=== PATIENT | male | born 1935 | race Hispanic/Latino ===

== ENCOUNTER 2017-09-17 12:10 | Inpatient (IN) | payer MEDICARE, OTHER ==
[2017-09-17 12:43] LABS: Hemoglobin 13.8 gm/dl (11.8-15.2); Mean Corpuscular HGB Conc 35 % (32-34); Mean Corpuscular Hemoglobin 31 pg (28-32); Mean Corpuscular Volume 86 fl (84-94); Platelet Count 158 K/mm3 (140-440); Red Blood Count 4.51 M/mm3 (3.65-5.03); Red Cell Distribution Width 14.3 % (13.2-15.2)
[2017-09-17 12:55] LABS: INR 2.13 (0.87-1.13); Partial Thromboplastin Time 34.1 Sec. (24.2-36.6)
[2017-09-17 12:58] LABS: BUN/Creatinine Ratio 18; Blood Urea Nitrogen 20 mg/dL (9-20); Calcium 10.1 mg/dL (8.4-10.2); Hemolysis Index 6
--- NOTE | 2017-09-17 18:47 | Emergency Department Report ---
ED GI Bleed HPI - General Chief complaint: GI Bleed Stated complaint: GI TROUBLE Time Seen by Provider: 09/17/17 13:09 Source: patient Mode of arrival: Ambulatory Limitations: No Limitations - History of Present Illness Initial comments: 81yo male with PMHx of Atrial fibrillation on coumadin came in with complaint of having black stools and had spitting up blood. Pt is under no acute distress , + eating, drinking, no change in behavior, relaxing on bed, GUIAC: NEGATIVE MD complaint: blood on toilet paper -: Gradual Radiation: none Severity scale (0 -10): 0 Quality: painless Consistency: intermittent Improves with: none Worsens with: none Associated Symptoms: denies other symptoms - Related Data Allergies Allergy/AdvReac Type Severity Reaction Status Date / Time No Known Allergies Allergy Unverified 09/17/17 12:20 ED Review of Systems ROS: Stated complaint: GI TROUBLE Other details as noted in HPI Constitutional: denies: chills, fever Eyes: denies: eye pain, eye discharge, vision change ENT: denies: ear pain, throat pain Respiratory: denies: cough, shortness of breath, wheezing Cardiovascular: denies: chest pain, palpitations Endocrine: no symptoms reported Gastrointestinal: denies: abdominal pain, nausea, diarrhea Genitourinary: denies: urgency, dysuria Musculoskeletal: denies: back pain, joint swelling, arthralgia Skin: denies: rash, lesions Neurological: denies: headache, weakness, paresthesias Psychiatric: denies: anxiety, depression Hematological/Lymphatic: denies: easy bleeding, easy bruising ED Past Medical Hx - Past Medical History Hx Hypertension: Yes Hx Diabetes: Yes Hx Arthritis: Yes Additional medical history: AFIB.CAD,hyperlipidemia,PVD,prostate ca 2001, hypotyroidism,hearing impaired,neuropathy - Surgical History Additional Surgical History: brain tumor 1981,prostate,cabbage 6 - Social History Smoking Status: Unknown if ever smoked Substance Use Type: None ED Physical Exam - General Limitations: No Limitations General appearance: alert, in no apparent distress - Head Head exam: Present: atraumatic, normocephalic - Eye Eye exam: Present: normal appearance - ENT ENT exam: Present: mucous membranes moist - Neck Neck exam: Present: normal inspection - Respiratory Respiratory exam: Present: normal lung sounds bilaterally. Absent: respiratory distress - Cardiovascular Cardiovascular Exam: Present: regular rate, normal rhythm. Absent: systolic murmur, diastolic murmur, rubs, gallop - GI/Abdominal GI/Abdominal exam: Present: soft, normal bowel sounds - Rectal Rectal exam: Present: deferred, normal inspection, normal rectal tone, heme (-) stool - Extremities Exam Extremities exam: Present: normal inspection - Back Exam Back exam: Present: normal inspection - Neurological Exam Neurological exam: Present: alert, oriented X3 - Psychiatric Psychiatric exam: Present: normal affect, normal mood - Skin Skin exam: Present: warm, dry, intact, normal color. Absent: rash ED Course Vital Signs 09/17/17 09/17/17 09/17/17 12:14 13:22 18:50 Temperature 98.6 F 98 F Pulse Rate 74 72 Respiratory 18 18 18 Rate Blood Pressure 135/58 Blood Pressure 131/69 [Left] O2 Sat by Pulse 98 98 98 Oximetry ED Medical Decision Making - Lab Data Result diagrams: 09/17/17 12:28 09/17/17 12:28 - Medical Decision Making 81yo male with pmh of A-fib on coumadin was sent by for GI bleed and to get a scope done. i called and per him to admit pt and get a scope done. i also discussed with (GI physician alterations supervisor) and per him ok to admit and he will see the pt as consult Critical care attestation.: If time is entered above; I have spent that time in minutes in the direct care of this critically ill patient, excluding procedure time. ED Disposition Clinical Impression: GI bleed Disposition: DC-09 OP ADMIT IP TO THIS HOSP Is pt being admited?: Yes Does the pt Need Aspirin: No Condition: Stable
--- NOTE | 2017-09-17 20:40 | History and Physical Report ---
History of Present Illness Date of examination: 09/17/17 Date of admission: 09/17/17 15:42 Chief complaint: See dictated H/p in reports History of present illness: See H/p in reports Medications and Allergies Allergies Allergy/AdvReac Type Severity Reaction Status Date / Time No Known Allergies Allergy Unverified 09/17/17 12:20 Home Medications Medication Instructions Recorded Confirmed Last Taken Type Gabapentin [Neurontin] 300 mg PO DAILY 09/18/17 09/18/17 Unknown History NIFEdipine [Nifedipine ER] 15 mg PO QDAY 09/18/17 09/18/17 Unknown History Nebivolol HCl [Bystolic] 5 mg PO DAILY 09/18/17 09/18/17 Unknown History Pravastatin Sodium [Pravachol] 40 mg PO QDAY 09/18/17 09/18/17 Unknown History Warfarin Sodium [Jantoven] 5 mg PO QDAY 09/18/17 09/18/17 Unknown History Exam - Constitutional Vitals: Temp Pulse Resp BP Pulse Ox 98 F 72 18 131/69 98 09/17/17 18:50 09/17/17 18:50 09/17/17 18:50 09/17/17 18:50 09/17/17 18:50 Results - Labs CBC & Chem 7: 09/17/17 12:28 09/17/17 12:28 Labs: Laboratory Last Values WBC 10.1 K/mm3 (4.5-11.0) 09/17/17 12:28 RBC 4.51 M/mm3 (3.65-5.03) 09/17/17 12:28 Hgb 13.8 gm/dl (11.8-15.2) 09/17/17 12:28 Hct 39.0 % (35.5-45.6) 09/17/17 12:28 MCV 86 fl (84-94) 09/17/17 12:28 MCH 31 pg (28-32) 09/17/17 12:28 MCHC 35 % (32-34) H 09/17/17 12:28 RDW 14.3 % (13.2-15.2) 09/17/17 12:28 Plt Count 158 K/mm3 (140-440) 09/17/17 12:28 PT 25.2 Sec. (12.2-14.9) H 09/17/17 12:28 INR 2.13 (0.87-1.13) H 09/17/17 12:28 APTT 34.1 Sec. (24.2-36.6) 09/17/17 12:28 Sodium 138 mmol/L (137-145) 09/17/17 12:28 Potassium 4.4 mmol/L (3.6-5.0) 09/17/17 12:28 Chloride 98.2 mmol/L (98-107) 09/17/17 12:28 Carbon Dioxide 27 mmol/L (22-30) 09/17/17 12:28 Anion Gap 17 mmol/L 09/17/17 12:28 BUN 20 mg/dL (9-20) 09/17/17 12:28 Creatinine 1.1 mg/dL (0.8-1.5) 09/17/17 12:28 Estimated GFR > 60 ml/min 09/17/17 12:28 BUN/Creatinine Ratio 18 % 09/17/17 12:28 Glucose 103 mg/dL (75-100) H 09/17/17 12:28 Calcium 10.1 mg/dL (8.4-10.2) 09/17/17 12:28
[2017-09-17] MEDS ORDERED: ZOFRAN IV PRN (20:41)
[2017-09-17] MEDS ORDERED: TYLENOL PO PRN (20:41)
[2017-09-17] MEDS ORDERED: SODIUM CHLORIDE FLUSH SYRINGE 10 ML IV PRN (20:41)
[2017-09-17] MEDS ORDERED: PERCOCET 5/325 PO PRN (20:41)
[2017-09-17] MEDS ORDERED: MORPHINE IV PRN (20:41)
[2017-09-17] MEDS ORDERED: NACL 0.9% 1000 ML 1,000 ML IV SCH (21:00)
[2017-09-18] MEDS: SODIUM CHLORIDE FLUSH SYRINGE 10 ML IV SCH ×3 (07:44→21:54)
--- NOTE | 2017-09-18 07:54 | History and Physical Report ---
CHIEF COMPLAINT: Black tarry stools for 1 day. HISTORY OF PRESENT ILLNESS: An 81-year-old male with history of atrial fibrillation on Coumadin, comes in for black stools and spitting blood. No acute distress. No lightheadedness. No shortness of breath. No chest pain. No exacerbating or relieving factors. PAST MEDICAL HISTORY: Significant for hypertension, diabetes, arthritis, atrial fibrillation, coronary artery disease, hyperlipidemia, prostate cancer in 2001, hypothyroidism, neuropathy. PAST SURGICAL HISTORY: Brain tumor, benign, removed in 1981, plastic surgery, CABG x 4. SOCIAL HISTORY: Smoker in the past. FAMILY HISTORY: Hypertension. REVIEW OF SYSTEMS: Significant for black stools. Otherwise, review of systems is essentially negative. No chest pain, no lightheadedness. A 14-point review of systems done. PHYSICAL EXAMINATION: GENERAL: Elderly male, cooperative during examination. VITAL SIGNS: Blood pressure is 138/62, temperature is 97.9, pulse is ____, respirations are 20, sats are 94%. HEENT: Unremarkable. NECK: Supple, no lymphadenopathy, no thyromegaly. LUNGS: Clear to auscultation and percussion. Good air entry. CARDIOVASCULAR: S1, S2 heard. No gallop, no murmur, no rub. Apical impulse in left fifth intercostal space and midclavicular line. ABDOMEN: Soft and benign. No hepatosplenomegaly. No guarding, no rigidity. RECTAL: Occult blood negative. CENTRAL NERVOUS SYSTEM: Alert and oriented x 4, nonfocal exam. EXTREMITIES: Good pedal pulses. No pedal edema. EKG: Atrial fibrillation. LABORATORY DATA: Significant for white count of 10,100, hemoglobin of 13.8 and hematocrit of 39.0, electrolytes are normal. ASSESSMENT AND PLAN: 1. Gastrointestinal bleed. The patient started on IV Protonix and GI consult requested for possible upper and lower endoscopy. Occult blood was negative. Also serial hemoglobin and hematocrit. 2. Hypertension. Catapres patch for the time being, resume nifedipine once the patient is started on oral liquids and diet. 3. Hyperlipidemia. We will hold statins. 4. Atrial fibrillation. We will hold the Coumadin. 5. Peripheral neuropathy. We will hold the gabapentin. 6. Deep venous thrombosis prophylaxis, only SCDs. In summary gastrointestinal bleed, endoscopy as necessary. IV Protonix. Hold the blood pressure medications and hyperlipidemia medications and also hold Coumadin until the patient is on resumed diet. JOB# [id number] AL/RYLAN
[2017-09-18 08:03] LABS: Basophils % (Auto) 0.2 % (0.0-1.8); Eosinophils # (Auto) 0.1 K/mm3 (0.0-0.4); Eosinophils % (Auto) 1.3 % (0.0-4.3); Hematocrit 37.4 % (35.5-45.6); Hemoglobin 12.7 gm/dl (11.8-15.2); Lymphocytes # (Auto) 1.2 K/mm3 (1.2-5.4); Lymphocytes % (Auto) 16.4 % (13.4-35.0); Mean Corpuscular HGB Conc 34 % (32-34); Mean Corpuscular Hemoglobin 30 pg (28-32); Mean Corpuscular Volume 88 fl (84-94); Monocytes # (Auto) 0.7 K/mm3 (0.0-0.8); Monocytes % (Auto) 9.4 % (0.0-7.3); Platelet Count 129 K/mm3 (140-440); Red Blood Count 4.24 M/mm3 (3.65-5.03); Red Cell Distribution Width 14.5 % (13.2-15.2)
--- NOTE | 2017-09-18 09:13 | Gastroenterology Consultation ---
History of Present Illness - Reason for Consult Consult date: 09/18/17 GI bleeding Requesting physician: JEANNIE JOHNSON - History of Present Illness Mr Gee is an 81 y/o male admitted with reports of waking up 24 hours ago and finding blood in his mouth. He also noted later that day that that his BM was dark. No prior episodes. He denies pain. No weight loss or reflux symptoms. Last colonoscopy 10+ years ago. No prior EGD. He is typically seen by Dr. Aj on an outpatient basis. Mr Gee is on daily coumadin and asa ( hx of CABG and A fib). PMH significant for CAD, CABG, HTN, A fib, prostate CA 2001, benign brain tumor 1981, neuropathy. Past History Past Medical History: arthritis, CAD, cancer, hypertension, hyperlipidemia, hypothyroidism Past Surgical History: CABG, Other (brain tumor removal- benign 1981) Social history: , lives with family Family history: no significant family history Medications and Allergies Allergies Allergy/AdvReac Type Severity Reaction Status Date / Time No Known Allergies Allergy Unverified 09/17/17 12:20 Home Medications Medication Instructions Recorded Confirmed Last Taken Type Gabapentin [Neurontin] 300 mg PO DAILY 09/18/17 09/18/17 Unknown History NIFEdipine [Nifedipine ER] 15 mg PO QDAY 09/18/17 09/18/17 Unknown History Nebivolol HCl [Bystolic] 5 mg PO DAILY 09/18/17 09/18/17 Unknown History Pravastatin Sodium [Pravachol] 40 mg PO QDAY 09/18/17 09/18/17 Unknown History Warfarin Sodium [Jantoven] 5 mg PO QDAY 09/18/17 09/18/17 Unknown History Active Meds: Active Medications Acetaminophen (Tylenol) 650 mg PO Q4H PRN PRN Reason: Pain MILD(1-3)/Fever >100.5/BYRD Sodium Chloride (Nacl 0.9% 1000 Ml) 1,000 mls @ 75 mls/hr IV DIRECT MARGOT Morphine Sulfate (Morphine) 2 mg IV Q4H PRN PRN Reason: Pain, Moderate (4-6) Ondansetron HCl (Zofran) 4 mg IV Q8H PRN PRN Reason: Nausea And Vomiting Oxycodone/Acetaminophen (Percocet 5/325) 1 tab PO Q6H PRN PRN Reason: Pain, Moderate (4-6) Pantoprazole Sodium (Protonix) 40 mg IV BID [facility] Sodium Chloride (Sodium Chloride Flush Syringe 10 Ml) 10 ml IV BID [facility] Last Admin: 09/18/17 07:44 Dose: Not Given Sodium Chloride (Sodium Chloride Flush Syringe 10 Ml) 10 ml IV PRN PRN PRN Reason: LINE FLUSH Review of Systems - Review of Systems All systems: negative Ears, Nose, Throat: other (blood in mouth) Gastrointestinal: melena Exam - Constitutional Vital Signs: Temp Pulse Resp BP Pulse Ox 98.7 F 66 20 138/59 97 09/18/17 08:29 09/18/17 08:29 09/18/17 08:29 09/18/17 08:29 09/18/17 08:29 General appearance: no acute distress, well-nourished - EENT Eyes: EOM intact ENT: hearing intact - Neck Neck: supple - Respiratory Respiratory: bilateral: CTA - Cardiovascular Rhythm: irregularly irregular Extremities: No edema, abnormal (uses cane for ambulation) - Gastrointestinal General gastrointestinal: Present: soft, non-tender, normal bowel sounds - Integumentary Integumentary: Present: warm, dry, pale - Neurologic Neurological: alert and oriented x3 - Psychiatric Psychiatric: appropriate mood/affect, cooperative - Labs CBC & Chem 7: 09/18/17 07:40 09/17/17 12:28 Lab Results: Laboratory Results - last 24 hr 09/17/17 09/17/17 09/17/17 12:28 12:28 12:28 WBC 10.1 RBC 4.51 Hgb 13.8 Hct 39.0 MCV 86 MCH 31 MCHC 35 H RDW 14.3 Plt Count 158 Lymph % (Auto) [place] % (Auto) Eos % (Auto) Baso % (Auto) Lymph # [place] # Eos # Baso # Seg Neutrophils % Seg Neutrophils # PT 25.2 H INR 2.13 H APTT 34.1 Sodium 138 Potassium 4.4 Chloride 98.2 Carbon Dioxide 27 Anion Gap 17 BUN 20 Creatinine 1.1 Estimated GFR > 60 BUN/Creatinine Ratio 18 Glucose 103 H Hemoglobin A1c Calcium 10.1 09/17/17 09/18/17 21:19 07:40 WBC 7.2 RBC 4.24 Hgb 12.7 Hct 37.4 MCV 88 MCH 30 MCHC 34 RDW 14.5 Plt Count 129 L Lymph % (Auto) 16.4 [place] % (Auto) 9.4 H Eos % (Auto) 1.3 Baso % (Auto) 0.2 Lymph # 1.2 [place] # 0.7 Eos # 0.1 Baso # 0.0 Seg Neutrophils % 72.7 H Seg Neutrophils # 5.2 PT INR APTT Sodium Potassium Chloride Carbon Dioxide Anion Gap BUN Creatinine Estimated GFR BUN/Creatinine Ratio Glucose Hemoglobin A1c 6.0 Calcium Assessment and Plan 1. Melena 2. A fib, on Coumadin and ASA -H/H stable since admission. No vomiting or bleeding since admission. Considering the patient is on Coumadin and ASA daily, he will need to have an EGD to rule out any pathology. Based on the patients report and symptoms, likely upper GI bleeding. -Continue to monitor H/H -Hold Coumadin for now. Hold ASA for now -INR 2.13 on 09/17, repeat today. -NPO -PPI BID -Plan for EGD today. -Further recommendations to follow.
--- NOTE | 2017-09-18 10:08 | Progress Note ---
Assessment and Plan Assessment and plan: Patient is an 81-year-old male who presented to the emergency department for complaints of black stool and spitting up blood Gastrointestinal bleed No further hematemesis or melena at this time, H/H stable, patient will continue Protonix GI consulted, will likely perform EGD today Hypertension We'll continue to monitor blood pressure, patient will resume outpatient oral medication once he is able to eat again Atrial fibrillation Rate is currently controlled, will continue to hold Coumadin for now Hyperlipidemia We'll resume statin therapy after EGD Peripheral neuropathy Will resume gabapentin after EGD DVT prophylaxis SCDs History Interval history: Patient seen and examined with family members at bedside. He denies any further bleeding since he's been at the hospital. No new issues at this time. Labs and nursing notes reviewed Hospitalist Physical - Constitutional Vitals: Temp Pulse Resp BP Pulse Ox 98.7 F 66 20 138/59 97 09/18/17 08:29 09/18/17 08:29 09/18/17 08:29 09/18/17 08:29 09/18/17 08:29 General appearance: Present: no acute distress, well-nourished - EENT Eyes: Present: PERRL, EOM intact ENT: hearing intact, clear oral mucosa - Neck Neck: Present: supple, normal ROM - Respiratory Respiratory effort: normal Respiratory: bilateral: CTA - Cardiovascular Rhythm: regular Heart Sounds: Present: S1 & S2 - Extremities Extremities: no ischemia, No edema - Abdominal General gastrointestinal: soft, non-tender, non-distended - Integumentary Integumentary: Present: clear, warm, dry - Psychiatric Psychiatric: appropriate mood/affect, intact judgment & insight, cooperative - Neurologic Neurologic: CNII-XII intact, moves all extremities - Allied Health Allied health notes reviewed: nursing Results - Labs CBC & Chem 7: 09/18/17 07:40 09/18/17 07:40 Labs: Laboratory Last Values WBC 7.2 K/mm3 (4.5-11.0) 09/18/17 07:40 RBC 4.24 M/mm3 (3.65-5.03) 09/18/17 07:40 Hgb 12.7 gm/dl (11.8-15.2) 09/18/17 07:40 Hct 37.4 % (35.5-45.6) 09/18/17 07:40 MCV 88 fl (84-94) 09/18/17 07:40 MCH 30 pg (28-32) 09/18/17 07:40 MCHC 34 % (32-34) 09/18/17 07:40 RDW 14.5 % (13.2-15.2) 09/18/17 07:40 Plt Count 129 K/mm3 (140-440) L 09/18/17 07:40 Lymph % (Auto) 16.4 % (13.4-35.0) 09/18/17 07:40 [place] % (Auto) 9.4 % (0.0-7.3) H 09/18/17 07:40 Eos % (Auto) 1.3 % (0.0-4.3) 09/18/17 07:40 Baso % (Auto) 0.2 % (0.0-1.8) 09/18/17 07:40 Lymph # 1.2 K/mm3 (1.2-5.4) 09/18/17 07:40 [place] # 0.7 K/mm3 (0.0-0.8) 09/18/17 07:40 Eos # 0.1 K/mm3 (0.0-0.4) 09/18/17 07:40 Baso # 0.0 K/mm3 (0.0-0.1) 09/18/17 07:40 Seg Neutrophils % 72.7 % (40.0-70.0) H 09/18/17 07:40 Seg Neutrophils # 5.2 K/mm3 (1.8-7.7) 09/18/17 07:40 PT 25.2 Sec. (12.2-14.9) H 09/17/17 12:28 INR 2.13 (0.87-1.13) H 09/17/17 12:28 APTT 34.1 Sec. (24.2-36.6) 09/17/17 12:28 Sodium 138 mmol/L (137-145) 09/17/17 12:28 Potassium 4.4 mmol/L (3.6-5.0) 09/17/17 12:28 Chloride 98.2 mmol/L (98-107) 09/17/17 12:28 Carbon Dioxide 27 mmol/L (22-30) 09/17/17 12:28 Anion Gap 17 mmol/L 09/17/17 12:28 BUN 20 mg/dL (9-20) 09/17/17 12:28 Creatinine 1.1 mg/dL (0.8-1.5) 09/17/17 12:28 Estimated GFR > 60 ml/min 09/17/17 12:28 BUN/Creatinine Ratio 18 % 09/17/17 12:28 Glucose 103 mg/dL (75-100) H 09/17/17 12:28 Hemoglobin A1c 6.0 % (4-6) 09/17/17 21:19 Calcium 10.1 mg/dL (8.4-10.2) 09/17/17 12:28
[2017-09-18] MEDS: PROTONIX IV SCH ×2 (10:11→21:54)
[2017-09-18 10:14] LABS: Alanine Aminotransferase 16 units/L (7-56); Albumin 3.7 g/dL (3.9-5); BUN/Creatinine Ratio 22; Blood Urea Nitrogen 20 mg/dL (9-20); Calcium 9.5 mg/dL (8.4-10.2); Hemolysis Index 13
[2017-09-18 11:04] LABS: INR 1.77 (0.87-1.13)
--- NOTE | 2017-09-18 11:04 | Consultation ---
History of Present Illness Consult date: 09/18/17 Consult reason: pre op evaluation, post op evaluation History of present illness: 81 year old male known CAD s/p CABG 2003 presenting with melena and a mouth full of blood. He is on coumadin as outpatient for afib. He denies chest pain or shortness of breath. ECG showing afib with no ischemic changes. Past History Past Medical History: arthritis, CAD, cancer, hypertension, hyperlipidemia, hypothyroidism Past Surgical History: CABG, Other (brain tumor removal- benign 1981) Social history: , lives with family Family history: no significant family history Medications and Allergies Allergies Allergy/AdvReac Type Severity Reaction Status Date / Time No Known Allergies Allergy Unverified 09/17/17 12:20 Home Medications Medication Instructions Recorded Confirmed Last Taken Type Gabapentin [Neurontin] 300 mg PO DAILY 09/18/17 09/18/17 Unknown History NIFEdipine [Nifedipine ER] 15 mg PO QDAY 09/18/17 09/18/17 Unknown History Nebivolol HCl [Bystolic] 5 mg PO DAILY 09/18/17 09/18/17 Unknown History Pravastatin Sodium [Pravachol] 40 mg PO QDAY 09/18/17 09/18/17 Unknown History Warfarin Sodium [Jantoven] 5 mg PO QDAY 09/18/17 09/18/17 Unknown History Active Meds: Active Medications Acetaminophen (Tylenol) 650 mg PO Q4H PRN PRN Reason: Pain MILD(1-3)/Fever >100.5/BYRD Sodium Chloride (Nacl 0.9% 1000 Ml) 1,000 mls @ 75 mls/hr IV [facility] Morphine Sulfate (Morphine) 2 mg IV Q4H PRN PRN Reason: Pain, Moderate (4-6) Ondansetron HCl (Zofran) 4 mg IV Q8H PRN PRN Reason: Nausea And Vomiting Oxycodone/Acetaminophen (Percocet 5/325) 1 tab PO Q6H PRN PRN Reason: Pain, Moderate (4-6) Pantoprazole Sodium (Protonix) 40 mg IV BID [facility] Last Admin: 09/18/17 10:11 Dose: 40 mg Sodium Chloride (Sodium Chloride Flush Syringe 10 Ml) 10 ml IV BID [facility] Last Admin: 09/18/17 10:11 Dose: 10 ml Sodium Chloride (Sodium Chloride Flush Syringe 10 Ml) 10 ml IV PRN PRN PRN Reason: LINE FLUSH Review of Systems All systems: negative Physical Examination Vital Signs Temp Pulse Resp BP Pulse Ox 98.6 F 74 18 135/58 98 09/17/17 12:14 09/17/17 12:14 09/17/17 12:14 09/17/17 12:14 09/17/17 12:14 General appearance: no acute distress Neck: Positive: neck supple Cardiac: Positive: irregularly irregular Lungs: Positive: Normal Exam Neuro: Positive: Grossly Intact Abdomen: Positive: Soft Extremities: Present: +1 Edema Results 09/18/17 07:40 09/18/17 07:40 Cardiac Enzymes 09/18/17 Range/Units 07:40 AST 30 (5-40) units/L Coagulation 09/17/17 Range/Units 12:28 PT 25.2 H (12.2-14.9) Sec. INR 2.13 H (0.87-1.13) APTT 34.1 (24.2-36.6) Sec. CBC 09/17/17 09/18/17 Range/Units 12:28 07:40 WBC 10.1 7.2 (4.5-11.0) K/mm3 RBC 4.51 4.24 (3.65-5.03) M/mm3 Hgb 13.8 12.7 (11.8-15.2) gm/dl Hct 39.0 37.4 (35.5-45.6) % Plt Count 158 129 L (140-440) K/mm3 Lymph # 1.2 (1.2-5.4) K/mm3 [place] # 0.7 (0.0-0.8) K/mm3 Eos # 0.1 (0.0-0.4) K/mm3 Baso # 0.0 (0.0-0.1) K/mm3 Comprehensive Metabolic Panel 09/17/17 09/18/17 Range/Units 12:28 07:40 Sodium 138 137 (137-145) mmol/L Potassium 4.4 3.7 (3.6-5.0) mmol/L Chloride 98.2 98.3 (98-107) mmol/L Carbon Dioxide 27 22 (22-30) mmol/L BUN 20 20 (9-20) mg/dL Creatinine 1.1 0.9 (0.8-1.5) mg/dL Glucose 103 H 108 H (75-100) mg/dL Calcium 10.1 9.5 (8.4-10.2) mg/dL AST 30 (5-40) units/L ALT 16 (7-56) units/L Alkaline Phosphatase 57 (35-129) units/L Total Protein 6.1 L (6.3-8.2) g/dL Albumin 3.7 L (3.9-5) g/dL Assessment and Plan CAD s/p CABG Echo 06/2016 - LVEF 50-55%, moderate pulmonary hypertension MPI 04/2015 - No ischemia Permanent atrial fibrillation Systemic Hypertension Hyperlipidemia Peripheral vascular disease Recommendations: Hold warfarin May proceed with upper and lower GI endoscopy cardiac santana - perioperative risk is low No further cardiac intervention needed
[2017-09-18] MEDS ORDERED: WATER FOR IRRIG STERILE IR ONE (12:05)
[2017-09-18] MEDS ORDERED: DIPRIVAN 10 MG/ML IV ONE ×2 (13:22)
--- NOTE | 2017-09-18 13:23 | Anesthesia Day of Surgery ---
Anesthesia Day of Surgery - Day of Surgery Patient Examined: Yes Patient H&P Reviewed: Yes Patient is NPO: Yes Cardiac Clearance: Yes
--- NOTE | 2017-09-18 13:28 | Anesthesia Consultation ---
Anesthesia Consult and Med Hx Date of service: 09/18/17 - Airway Anesthetic Teeth Evaluation: Dentures ROM Head & Neck: Adequate Mental/Hyoid Distance: Adequate Mallampati Class: Class II Intubation Access Assessment: Probably Good - Pulmonary Exam CTA: Yes - Cardiac Exam Cardiac Exam: RRR - Pre-Operative Health Status ASA Pre-Surgery Classification: ASA3 Proposed Anesthetic Plan: MAC - Cardiovascular System Hx Hypertension: Yes Hx Coronary Artery Disease: Yes (s/p CABG) Hx Cardia Arrhythmia: Yes (A.fib) Hx Peripheral Vascular Disease: Yes - Gastrointestinal Hx Gastroesophageal Reflux Disease: Yes - Endocrine Hx Hypothyroidism: Yes - Hematic Hx Anemia: Yes - Other Systems Hx Cancer: Yes (prostrate cancer, benign brain tumor) Hx Obesity: Yes - Additional Comments Anesthesia Medical History Comments: hearing impairement, arthritis, HLD
--- NOTE | 2017-09-18 13:55 | Operative Report ---
Operative Report Operative Report: Date of procedure: 09/18/2017 Procedure: Esophagogastroduodenoscopy with Endo Clip thing of a duodenal polyp and biopsy of the duodenal polyp. Biopsy of the antrum 1 for H. pylori. Preprocedure diagnosis: GI bleeding Post procedure diagnosis: 1 cm pedunculated friable duodenal bulb polyp, multiple punctate duodenal bulb ulcers. Mild antral gastritis. Probable Wagner's esophagus. Endoscopist: Dr. Vigil Anesthesia: Monitored anesthesia care per anesthesia department Medications: Propofol per anesthesia Estimated blood loss: 0 After careful discussion of the nature and purpose of the procedure as well as details the technique risks benefits and alternatives consent was obtained. The patient was placed in the left lateral decubitus position and medicated per anesthesia. The tip of the [employer] EQ 570 video scope was passed per orum under direct vision into the esophagus and advanced into the stomach and descending duodenum. The descending duodenum is normal. The duodenal bulb revealed a 1 cm pedunculated polyp on a short stalk. A single biopsy was taken from this moderately friable polyp and there was some oozing of bright red blood. It was elected to place an Endo clip on the stalk of the polyp. No further oozing of blood was encountered. Multiple tiny punctate ulcers were noted as well in the duodenal bulb. The pylorus were symmetrical and normal. The scope was withdrawn into the stomach and the stomach then gently insufflated with air. The antrum revealed patchy erythema but no ulcers or erosions. A single biopsy was taken in the prepyloric antrum for H. pylori testing. The stomach was further insufflated and the scope was then retroflexed and partially withdrawn. The cardia, fundus, and body of the stomach were within normal limits and easily distensible.The scope was then withdrawn in the forward position. The esophagogastric junction was at 40 cm. There was a 1-2 cm area proximal migration of the Z line with tongues of salmon pink mucosa suggestive of Wagner's esophagus. Biopsies were not taken because of the patient's presently anticoagulated status. Otherwise the esophageal body was normal throughout. The procedure was was well tolerated and the patient was observed in recovery. Impressions: Erosive duodenitis. Polyp in duodenal bulb possibly adenomatous. Probable Wagner's esophagus. Plan: Withhold Coumadin overnight and if no bleeding is evident, restart Coumadin. PPI therapy. Await pathology results. Consider repeat endoscopy for biopsy of suspected Wagner's mucosa when the patient is off Coumadin in the future. Home tomorrow if stable with follow-up in 1-2 weeks by his primary job specification writer, Dr. Mandeep Aj. Electronically signed: Colton Vigil MD
--- NOTE | 2017-09-18 14:01 | Post Anesthesia Evaluation ---
- Post Anesthesia Evaluation Patient Participated: Yes Airway Patent: Yes Stable Respiratory Function: Yes Nausea/Vomiting: No Temp > 96.8F: Yes Pain Manageable: Yes Adequeate Hydration: Yes Anesthesia Complications: No
--- NOTE | 2017-09-19 07:24 | Progress Note ---
Assessment and Plan CAD s/p CABG Echo 06/2016 - LVEF 50-55%, moderate pulmonary hypertension MPI 04/2015 - No ischemia Permanent atrial fibrillation Systemic Hypertension Hyperlipidemia Peripheral vascular disease Recommendations: CAD s/p CABG Echo 06/2016 - LVEF 50-55%, moderate pulmonary hypertension MPI 04/2015 - No ischemia Recommend BB, ASA and high intensity statin Permanent atrial fibrillation - restart coumadin when okay with GI. Goal INR 2- 3. Systemic Hypertension - restart BB. Hyperlipidemia - high intensity statin recommended Peripheral vascular disease - ASA and high intensity statin Subjective Date of service: 09/19/17 Objective Vital Signs Temp Pulse Resp Resp BP BP Pulse Ox 09/19/17 04:46 98.2 F 91 H 20 129/65 93 09/19/17 01:34 98.0 F 71 20 133/61 93 09/18/17 20:38 20 09/18/17 20:33 20 97 09/18/17 19:50 92 H 100 09/18/17 19:43 97.4 F L 57 L 20 136/76 98 09/18/17 19:21 58 L 09/18/17 16:11 97.3 F L 68 20 116/55 96 09/18/17 14:02 67 13 119/69 94 09/18/17 13:47 97.7 F 72 18 113/44 96 09/18/17 13:11 97.5 F L 63 16 134/74 96 09/18/17 13:07 97.5 F L 63 16 134/74 96 09/18/17 11:54 97.8 F 65 20 108/55 97 09/18/17 08:29 98.7 F 66 20 138/59 97 - Physical Examination Neck: Positive: neck supple Neuro: Positive: Grossly Intact Abdomen: Positive: Soft Extremities: Present: +1 Edema - Labs and Meds Cardiac Enzymes 09/18/17 Range/Units 07:40 AST 30 (5-40) units/L Coagulation 09/18/17 Range/Units 10:36 PT 21.7 H (12.2-14.9) Sec. INR 1.77 H (0.87-1.13) CBC 09/18/17 Range/Units 07:40 WBC 7.2 (4.5-11.0) K/mm3 RBC 4.24 (3.65-5.03) M/mm3 Hgb 12.7 (11.8-15.2) gm/dl Hct 37.4 (35.5-45.6) % Plt Count 129 L (140-440) K/mm3 Lymph # 1.2 (1.2-5.4) K/mm3 [place] # 0.7 (0.0-0.8) K/mm3 Eos # 0.1 (0.0-0.4) K/mm3 Baso # 0.0 (0.0-0.1) K/mm3 Comprehensive Metabolic Panel 09/18/17 Range/Units 07:40 Sodium 137 (137-145) mmol/L Potassium 3.7 (3.6-5.0) mmol/L Chloride 98.3 (98-107) mmol/L Carbon Dioxide 22 (22-30) mmol/L BUN 20 (9-20) mg/dL Creatinine 0.9 (0.8-1.5) mg/dL Glucose 108 H (75-100) mg/dL Calcium 9.5 (8.4-10.2) mg/dL AST 30 (5-40) units/L ALT 16 (7-56) units/L Alkaline Phosphatase 57 (35-129) units/L Total Protein 6.1 L (6.3-8.2) g/dL Albumin 3.7 L (3.9-5) g/dL
[2017-09-19 08:52] LABS: Basophils % (Auto) 0.5 % (0.0-1.8); Eosinophils # (Auto) 0.1 K/mm3 (0.0-0.4); Eosinophils % (Auto) 1.2 % (0.0-4.3); Hematocrit 39.4 % (35.5-45.6); Hemoglobin 13.8 gm/dl (11.8-15.2); Lymphocytes # (Auto) 1.2 K/mm3 (1.2-5.4); Lymphocytes % (Auto) 14.1 % (13.4-35.0); Mean Corpuscular HGB Conc 35 % (32-34); Mean Corpuscular Hemoglobin 30 pg (28-32); Mean Corpuscular Volume 87 fl (84-94); Monocytes # (Auto) 0.6 K/mm3 (0.0-0.8); Platelet Count 153 K/mm3 (140-440); Red Blood Count 4.54 M/mm3 (3.65-5.03); Red Cell Distribution Width 14.5 % (13.2-15.2)
[2017-09-19 09:02] LABS: INR 1.54 (0.87-1.13)
[2017-09-19] MEDS ORDERED: LOPRESSOR PO SCH (11:00)
[2017-09-19] MEDS ORDERED: PROTONIX PO SCH (11:00)
--- NOTE | 2017-09-19 12:44 | Discharge Summary ---
Providers - Providers Date of Admission: 09/17/17 15:42 Date of discharge: 09/19/17 Attending physician: LORRAINE TOMPKINS MD 09/17/17 20:41 Consult to Physician [CONS] Routine Comment: Consulting Provider: ISABEL GU Physician Instructions: Reason For Exam: GI bleed 09/18/17 09:26 Consult to Physician [CONS] Routine Comment: Please the need for anticoagulation at discharge Consulting Provider: JOSE VERDUGO Physician Instructions: Reason For Exam: A. fib GI bleed Primary care physician: B[employer] SEWER Hospitalization Reason for admission: GI bleed Condition: Stable Procedures: EGD Hospital course: Mr Gee is an 81 y/o male admitted with reports of waking up 24 hours ago and finding blood in his mouth. He also noted later that day that that his BM was dark. No prior episodes. He denies pain. No weight loss or reflux symptoms. Last colonoscopy 10+ years ago. No prior EGD. He is typically seen by Dr. Aj on an outpatient basis. Mr Gee is on daily coumadin and asa ( hx of CABG and A fib). PMH significant for CAD, CABG, HTN, A fib, prostate CA 2001, benign brain tumor 1981, neuropathy. Patient was admitted to the floor and was started with protonix, Coumadin was held. GI was consulted and Dr Gu did EGD and here is the finding and recommendations. "Impressions: Erosive duodenitis. Polyp in duodenal bulb possibly adenomatous. Probable Wagner's esophagus. Plan: Withhold Coumadin overnight and if no bleeding is evident, restart Coumadin. PPI therapy. Await pathology results. Consider repeat endoscopy for biopsy of suspected Wagner's mucosa when the patient is off Coumadin in the future. Home tomorrow if stable with follow-up in 1-2 weeks by his primary retail loan originator, Dr. Mandeep Aj". Next day patient was stable and no further bleeding or dark stool. His Coumadin was restarted and patient was discharged home in a stable conditions. Disposition: - TO HOME OR SELFCARE Time spent for discharge: 31 minutes - Discharge Diagnoses (1) GI bleed Status: Acute (2) Atrial fibrillation Status: Chronic Core Measure Documentation - Palliative Care Palliative Care/ Comfort Measures: Not Applicable - Core Measures Any of the following diagnoses?: none Exam - Physical Exam Narrative exam: Not in cardiopulmonary distress. The patient appeared well nourished and normally developed. Vital signs as documented. Head exam is unremarkable. No scleral icterus . Neck is without jugular venous distension, thyromegaly, or carotid bruits. Lungs are clear to auscultation. Cardiac exam reveals regular rate and Rhythm. First and second heart sounds normal. No murmurs, rubs or gallops. Abdominal exam reveals normal bowel sounds, no masses, no organomegaly and no aortic enlargement. Extremities are nonedematous and both femoral and pedal pulses are normal. WELDING PRODUCTION SUPERVISOR: Alert and oriented 3. No focal weakness. - Constitutional Vitals: Temp Pulse Resp BP Pulse Ox 98.2 F 91 H 20 129/65 93 09/19/17 04:46 09/19/17 04:46 09/19/17 10:00 09/19/17 04:46 09/19/17 04:46 Plan Activity: no restrictions Weight Bearing Status: Full Weight Bearing Diet: low cholesterol, low salt Follow up with: PRIMARY CARE, [Primary Care Provider] - 7 Days Forms: Accompanied Note Prescriptions: Pantoprazole [Protonix TAB] 40 mg PO BID #30 tablet
[2017-09-19 13:15] VITALS: BP 125/57
--- NOTE | 2017-09-19 15:04 | Gastroenterology Progress Note ---
Assessment and Plan Pt without signs of further bleeding episodes or gi complaints at this time. okay for d/c from gi stand point. he should f/u with his primary GI (Dr Aj within 1-2 weeks) for follow-up of recent pathology results done during egd. will s/o, call as needed or with questions Subjective Date of service: 09/19/17 Interval history: pt seen and examined, denies gi bleeding episodes since egd yesterday. denies abd pain, tolerating cld. Objective - Constitutional Vitals: Temp Pulse Resp BP Pulse Ox 97.7 F 79 20 125/57 96 09/19/17 08:14 09/19/17 08:14 09/19/17 10:00 09/19/17 08:14 09/19/17 08:14 General appearance: no acute distress - Respiratory Respiratory effort: normal Respiratory: bilateral: CTA - Cardiovascular Rhythm: regular Heart Sounds: Present: S1 & S2 - Gastrointestinal General gastrointestinal: Present: soft, non-tender, non-distended - Neurologic Neurological: alert and oriented x3 - Labs CBC & Chem 7: 09/19/17 08:10 09/18/17 07:40 Labs: Laboratory Results - last 24 hr 09/19/17 09/19/17 08:10 08:10 WBC 8.4 RBC 4.54 Hgb 13.8 Hct 39.4 MCV 87 MCH 30 MCHC 35 H RDW 14.5 Plt Count 153 Lymph % (Auto) 14.1 [place] % (Auto) 7.0 Eos % (Auto) 1.2 Baso % (Auto) 0.5 Lymph # 1.2 [place] # 0.6 Eos # 0.1 Baso # 0.0 Seg Neutrophils % 77.2 H Seg Neutrophils # 6.5 PT 19.4 H INR 1.54 H
== END 2017-09-19 15:32 | disposition home or self-care (01) | DRG 379 ==
LOC: ED 12:10 → 4A 15:42
PROVIDERS: ADMIT Internal Medicine; ATTEND Internal Medicine
PROC: 0W3P8ZZ Control Bleeding in Gastrointestinal Tract, Via Natural or Artificial Opening Endoscopic (ICD-10-PCS; principal; 2017-09-18)
PROC: 0DB78ZX Excision of Stomach, Pylorus, Via Natural or Artificial Opening Endoscopic, Diagnostic (ICD-10-PCS; 2017-09-18)
DX: K29.61 Other gastritis with bleeding (principal); I48.91 Unspecified atrial fibrillation; I10 Essential (primary) hypertension; M19.90 Unspecified osteoarthritis, unspecified site; I25.10 Atherosclerotic heart disease of native coronary artery without angina pectoris; E03.9 Hypothyroidism, unspecified; E11.51 Type 2 diabetes mellitus with diabetic peripheral angiopathy without gangrene; E78.5 Hyperlipidemia, unspecified; E11.42 Type 2 diabetes mellitus with diabetic polyneuropathy; K29.81 Duodenitis with bleeding; Z79.01 Long term (current) use of anticoagulants; Z85.46 Personal history of malignant neoplasm of prostate; Z82.49 Family history of ischemic heart disease and other diseases of the circulatory system; Z95.1 Presence of aortocoronary bypass graft
CPT/HCPCS: 36415; 80048; 80053; 83036; 85025; 85027; 85610; 85730; 88305; 88342; 93005; 93010; C9113; J2704; J7030